=== PATIENT | male | born 1965 | race Caucasian/White ===

== ENCOUNTER 2016-11-17 09:28 | Inpatient (IN) | payer OTHER ==
[2016-11-17] MEDS ORDERED: Ketorolac Tromethamine 30 MG/ML VIAL ONE (12:14)
[2016-11-17] MEDS ORDERED: Ertapenem 1 GM in Sodium Chloride 0.9% 100 ML IVPB ONE (12:30)
[2016-11-17 12:33] LABS: #Eosinphils 0.2 thou/uL (0.0-0.7); #Lymphocytes 1.3 thou/uL (1.20-3.40); #Monocytes 0.6 thou/uL (0.11-0.59); #Neutrophils 4.8 thou/uL (1.40-6.50); %Basophils 0.4 % (0.0-1.0); %Eosinophils 2.9 % (0.0-10.0); %Lymphocytes 18.2 % (21.0-51.0); %Monocytes 8.9 % (0.0-10.0); Hematocrit 48.8 % (42.0-52.0); Mean Platelet Volume 6.7 fL (7.4-10.4); Red Blood Cell (RBC) Count 4.91 mill/uL (4.70-6.10); White Blood Cell (WBC) Count 6.9 thou/uL (4.8-10.8)
[2016-11-17 12:36] LABS: Anion Gap 15 mmol/L (10-20); BUN (Urea Nitrogen) 10 mg/dL (8.9-20.6); Calc. Creatinine Clearance 143 mL/min (70-130); Calcium 9.7 mg/dL (7.8-10.44); Carbon Dioxide 22 mmol/L (22-29); Chloride 104 mmol/L (98-107); Estimated GFR-MDRD Greater than 90
[2016-11-17] MEDS ORDERED: PHENYLEPHRINE-NS 100 MCG/ML 10 ML SYRINGE ONE (12:44)
[2016-11-17] MEDS ORDERED: Lidocaine 1% PF 5 ML VIAL ONE (12:44)
[2016-11-17] MEDS ORDERED: ePHEDrine/0.9% NaCl/PF SYRINGE 50 mg/10 ml ONE (12:44)
[2016-11-17] MEDS ORDERED: Propofol 200 MG/20 ML VIAL ONE ×2 (12:44)
[2016-11-17] MEDS ORDERED: Ondansetron HCl/PF 4 MG/2 ML Vial ONE (12:44)
[2016-11-17] MEDS ORDERED: Glycopyrrolate 0.2 MG/ML 5 ML SYRINGE ONE (12:44)
[2016-11-17] MEDS ORDERED: Bupivacaine HCl 0.5%/Epinephrine 1:200,000/PF 30 ml Vial ONE (14:18)
[2016-11-17] MEDS ORDERED: Meperidine HCl/PF 25 MG/ML VIAL SLOW IVP PRN (17:00)
[2016-11-17] MEDS ORDERED: Promethazine HCl 25 MG/ML VIAL SLOW IVP PRN (17:00)
[2016-11-17] MEDS ORDERED: Ondansetron HCl/PF 4 MG/2 ML Vial IVP PRN ×2 (17:00)
[2016-11-17] MEDS ORDERED: HYDROmorphone 2 MG/ML VIAL SLOW IVP PRN (17:00)
[2016-11-17] MEDS ORDERED: Dextrose 50% Abboject 50 ML SYRINGE SLOW IVP PRN (17:00)
[2016-11-17] MEDS ORDERED: Morphine Sulfate 2 MG/ML SYRINGE SLOW IVP PRN ×2 (17:00)
[2016-11-17] MEDS ORDERED: Promethazine HCl 25 MG/ML VIAL IM PRN (17:00)
[2016-11-17] MEDS ORDERED: Dextrose 5% in Water 1,000 ML IV PRN (17:00)
[2016-11-17] MEDS: Lactated Ringer's 1,000 ML IV SCH (19:30)
[2016-11-17 20:15] LABS: #Lymphocytes 0.5 thou/uL (1.20-3.40); #Monocytes 0.9 thou/uL (0.11-0.59); #Neutrophils 13.8 thou/uL (1.40-6.50); %Basophils 0.1 % (0.0-1.0); %Eosinophils 0.1 % (0.0-10.0); %Lymphocytes 3.1 % (21.0-51.0); %Monocytes 5.7 % (0.0-10.0); Hematocrit 35.6 % (42.0-52.0); Mean Platelet Volume 6.7 fL (7.4-10.4); Red Blood Cell (RBC) Count 3.53 mill/uL (4.70-6.10); White Blood Cell (WBC) Count 15.2 thou/uL (4.8-10.8)
[2016-11-17] MEDS: Famotidine/PF 20 mg/2ml Vial SLOW IVP SCH (21:19)
[2016-11-17] MEDS: Ketorolac Tromethamine 30 MG/ML VIAL IVP SCH (23:20)
[2016-11-17] MEDS: Acetaminophen 1,000 MG in Premix Bag 1 BAG IVPB SCH (23:20)
--- NOTE | 2016-11-18 00:32 | OP ---
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 PROCEDURES: Laparoscopy converted to a laparotomy with one-hour adhesiolysis, repair of several ser osal tears, mobilization of the distal transverse colon to the middle colic vessels and primary colo rectal anastomosis with 31 mm EEA stapler. Scarring led to bleeding from the left iliac vein, requi ring 4-0 Prolene closure accounting for 2000 mL of blood loss. BLOOD TRANSFUSED: None. PREOPERATIVE HEMOGLOBIN: 17 ANESTHESIA: General anesthesia, TAP block. PROCEDURE IN DETAIL: Patient was taken to the operating room where under general anesthesia in the dorsal lithotomy position, abdomen was prepared with chloraprep. Perineum, buttocks prepared with B etadine, draped in routine fashion. Initially, made incision in the right subcostal area laterally and pneumoperitoneum to 15 mmHg obtained with the Veress needle, replacing it with a 5 port and vide o laparoscope inserted. There were several adhesions initially taken down with the laparoscope as t hey were very loose, but there were several small bowel adhesions to anterior abdominal wall. Incis ion was made open as these adhesions were extensive. Laparoscopy was terminated and midline incisio n made through the midline, old scar and carried down through the skin and subcutaneous tissue, ente ring the abdominal cavity sharply. Adhesiolysis taken down with blunt and sharp dissection. One-ho ur adhesiolysis undertaken. Small bowel freed from the abdominal wall and from itself and the gutte rs mainly to the left. The viscera were reflected right lateral. Bookwalter retractor used for ret raction. Pelvis freed of adhesions. The colostomy taken down, which had been closed with continuou s locked suture of 2-0 silk. Elliptical incision made, taken down the colostomy from the subcutaneo us tissue and the fascia and dropped into the abdominal cavity. It was then mobilized and freed fro m small bowel adhesions and was mobilized all the way up to the middle colic vessels, which were pre served since considering the patient had a previous right colectomy. This mobilized the colon as mu ch as possible. Attention was then turned to identify location of the rectal stump. A Prolene sutu re was identified where this had been marked, but it was malpositioned to the left of the pelvis and it was dissected free posteriorly. The left ureter was identified and kept free of harm, but as th is rectal stump seemed to be adherent to the patient's left pelvis, the iliac vein was partially inc ised and bleeding ensued reflecting the blood loss. Interrupted suture of 4-0 Prolene placed to rep air this. FloSeal and Surgicel applied and local pressure. This resulted in good hemostasis. Rect al probe was then placed in the rectum identifying the rectal stump immediately posterior to the jovany dder. It was dissected free and then the 31 mm EEA stapler advanced and the post advanced out of th e rectal stump and the anvil which had been placed in the proximal colon after resecting the skin ju st adjacent to the colon and a pursestring suture of 2-0 Prolene placed and tied around the anvil. The anvil was connected to the stapling device and approximated within the torque fire range, then f ired, loosened and removed, and 2 intact donuts noted. Anastomosis checked under water without leak age with 30 mL balloon Robin catheter used to insufflate the rectum and lower colon. Once this was completed, abdominal cavity irrigated and irrigant evacuated. Hemostasis noted. Sponge and needle counts were correct. Small bowel was run from the ligament of Treitz to the ileocolonic anastomosis back and forth three times. Serosal tears closed with 3-0 silk transversely and interrupted Lember t sutures. The NG tube was palpated in good position. Patient tolerated the procedure well. Midli ne fascia approximated with continuous suture of #1 PDS. Skin and subcutaneous tissues irrigated, s kin approximated with hpuc. The colostomy site had been closed by approximating the posterior fa scia with continuous suture #1 PDS, anterior fascia with interrupted [id number] suture of #1 PD S. Skin and subcutaneous tissues irrigated, skin approximated with phuc. Patient tolerated the procedure well.
[2016-11-18] MEDS: Lactated Ringer's 1,000 ML IV SCH ×3 (03:20→18:25)
[2016-11-18] MEDS: Acetaminophen 1,000 MG in Premix Bag 1 BAG IVPB SCH ×4 (04:11→18:26)
[2016-11-18] MEDS: Ketorolac Tromethamine 30 MG/ML VIAL IVP SCH ×4 (04:11→18:26)
[2016-11-18 06:02] LABS: #Basophils 0.1 thou/uL (0.0-0.2); #Lymphocytes 0.6 thou/uL (1.20-3.40); #Monocytes 0.8 thou/uL (0.11-0.59); #Neutrophils 9.3 thou/uL (1.40-6.50); %Basophils 0.5 % (0.0-1.0); %Eosinophils 0.1 % (0.0-10.0); %Lymphocytes 5.2 % (21.0-51.0); %Monocytes 7.4 % (0.0-10.0); Hematocrit 28.3 % (42.0-52.0); Mean Platelet Volume 7.4 fL (7.4-10.4); Red Blood Cell (RBC) Count 2.81 mill/uL (4.70-6.10); White Blood Cell (WBC) Count 10.7 thou/uL (4.8-10.8)
[2016-11-18 06:20] LABS: Anion Gap 11 mmol/L (10-20); BUN (Urea Nitrogen) 11 mg/dL (8.9-20.6); Calc. Creatinine Clearance 168 mL/min (70-130); Calcium 8.4 mg/dL (7.8-10.44); Carbon Dioxide 23 mmol/L (22-29); Chloride 106 mmol/L (98-107); Estimated GFR-MDRD Greater than 90
[2016-11-18] MEDS: Famotidine/PF 20 mg/2ml Vial SLOW IVP SCH ×2 (09:31→20:59)
--- NOTE | 2016-11-18 10:31 | PRG ---
DATE OF SERVICE: 11/18/2016 SUBJECTIVE: Mr. Mcqueen is doing well today. He is 1 day postoperative colostomy reversal, extensi ve adhesiolysis. His tap block and parental analgesics are working well for his pain control. He c omplains mostly of the NG tube. PHYSICAL EXAMINATION: VITAL SIGNS: Temperature 98 degrees, 84 heart rate, 20 respiratory rate, 135/88. Postoperatively, his nasogastric tube has put out 100 mL, Robin 600 mL. LABORATORY: This morning revealed white count 10, hemoglobin 9.8. Basic metabolic profile is elie l. BUN 11, creatinine 0.71, potassium 4.3. LUNGS: Clear to auscultation. CARDIAC: Regular rate and rhythm without murmur or gallop. ABDOMEN: Soft, postoperative tenderness. Wound looks good. EXTREMITIES: Unremarkable. ASSESSMENT AND PLAN: Doing well 1 day postoperative colostomy reversal. Continue NG tube today. I ce chips as needed. Increased mobility and ambulation. Leave Robin in place now. Check CBC in the morning.
[2016-11-18] MEDS: Enoxaparin Sodium 40 MG/0.4 ML SYRINGE SC SCH (10:48)
[2016-11-18 13:42] VITALS: BMI 26.9
[2016-11-18] MEDS ORDERED: Naloxone HCl 0.4 mg/ml Vial IV PRN (14:27)
[2016-11-18] MEDS ORDERED: Chloraseptic Spray 180 ml Bottle PO PRN (14:27)
[2016-11-18] MEDS: Fentanyl 5000 MCG/250 ML CADD IV PRN (15:08)
[2016-11-19] MEDS: Ketorolac Tromethamine 30 MG/ML VIAL IVP SCH ×5 (00:23→23:42)
[2016-11-19] MEDS: Acetaminophen 1,000 MG in Premix Bag 1 BAG IVPB SCH ×4 (00:23→17:46)
[2016-11-19] MEDS: Lactated Ringer's 1,000 ML IV SCH ×4 (00:24→20:39)
[2016-11-19 06:56] LABS: #Eosinphils 0.1 thou/uL (0.0-0.7); #Lymphocytes 0.6 thou/uL (1.20-3.40); #Monocytes 0.5 thou/uL (0.11-0.59); %Basophils 0.3 % (0.0-1.0); %Eosinophils 1.2 % (0.0-10.0); %Lymphocytes 10.4 % (21.0-51.0); %Monocytes 7.3 % (0.0-10.0); Hematocrit 26.3 % (42.0-52.0); Mean Platelet Volume 7.5 fL (7.4-10.4); Red Blood Cell (RBC) Count 2.59 mill/uL (4.70-6.10); White Blood Cell (WBC) Count 6.1 thou/uL (4.8-10.8)
[2016-11-19 07:00] LABS: Anion Gap 11 mmol/L (10-20); BUN (Urea Nitrogen) 10 mg/dL (8.9-20.6); Calc. Creatinine Clearance 175 mL/min (70-130); Calcium 8.3 mg/dL (7.8-10.44); Carbon Dioxide 25 mmol/L (22-29); Chloride 107 mmol/L (98-107); Estimated GFR-MDRD Greater than 90
[2016-11-19] MEDS: Famotidine/PF 20 mg/2ml Vial SLOW IVP SCH ×2 (10:14→19:47)
[2016-11-19] MEDS: Enoxaparin Sodium 40 MG/0.4 ML SYRINGE SC SCH (10:20)
--- NOTE | 2016-11-19 23:42 | PRG ---
DATE OF CONSULTATION: 11/19/2016. HISTORY OF PRESENT ILLNESS: Jean Mcqueen is 2 days postoperative extensive adhesiolysis, closure of serosal tears, colostomy reversal 31 mm EA colorectal anastomosis. The patient is doing well ove rall. He is irritated mostly by the NG tube. He has good pain control with his tap blocks, 98.1 de grees, 90, 150/85. His Robin catheter is in place, 1350 in the last 24 hours. Gastric drainage 450 last 24 hours. He reports small amount of flatus possibly. PHYSICAL EXAMINATION: LUNGS: Clear to auscultation. CARDIAC: Regular rate and rhythm without murmur or gallop. ABDOMEN: Soft, quiet. Surgical wound looks good. Dressing removed and replaced because of some mi ld oozing, otherwise, wound could be left open. EXTREMITIES: Unremarkable. LABORATORY: White count 6, hemoglobin 9.1. Basic metabolic profile is unremarkable. ASSESSMENT AND PLAN: 1. Two days status post extensive adhesiolysis, colostomy reversal. He did experience some blood l oss during the operation related to the iliac vein controlled with Prolene suture and FloSeal. His hemoglobin is stable. We will discontinue daily labs. He will need to continue NG tube for now unt il more definitive bowel function due to the extensive adhesiolysis. Dr. Ervin is covering the week end and I will leave it to his discretion as to when this tube should be removed. 2. Good mobility level and good pain control.
[2016-11-20] MEDS: Ketorolac Tromethamine 30 MG/ML VIAL IVP SCH ×3 (06:30→17:49)
[2016-11-20] MEDS: Famotidine/PF 20 mg/2ml Vial SLOW IVP SCH ×2 (08:42→21:48)
[2016-11-20] MEDS: Lactated Ringer's 1,000 ML IV SCH ×2 (08:43→15:45)
[2016-11-20] MEDS: Enoxaparin Sodium 40 MG/0.4 ML SYRINGE SC SCH (10:12)
[2016-11-21] MEDS: Lactated Ringer's 1,000 ML IV SCH ×3 (02:51→23:54)
[2016-11-21] MEDS: Fentanyl 5000 MCG/250 ML CADD IV PRN (05:49)
[2016-11-21] MEDS: Famotidine/PF 20 mg/2ml Vial SLOW IVP SCH ×2 (09:37→22:03)
[2016-11-21] MEDS: Enoxaparin Sodium 40 MG/0.4 ML SYRINGE SC SCH (09:38)
[2016-11-21] MEDS: Acetaminophen 500 MG TAB PO SCH ×2 (14:48→22:03)
[2016-11-21] MEDS: traMADol HCl 50 MG TAB PO SCH ×2 (14:49→22:03)
[2016-11-22] MEDS: Acetaminophen 500 MG TAB PO SCH ×4 (02:13→20:05)
[2016-11-22] MEDS: traMADol HCl 50 MG TAB PO SCH ×4 (02:13→20:05)
[2016-11-22] MEDS: Famotidine/PF 20 mg/2ml Vial SLOW IVP SCH (08:00)
[2016-11-22] MEDS: Enoxaparin Sodium 40 MG/0.4 ML SYRINGE SC SCH (08:31)
[2016-11-22] MEDS: Lactated Ringer's 1,000 ML IV SCH (13:59)
--- NOTE | 2016-11-22 19:21 | PRG ---
DATE OF SERVICE: 11/22/2016 SUBJECTIVE: Mr. Mcqueen is doing well today. He is on clear liquids. He had small amount of diste ntion when he overdid his clear liquids to start with yesterday, but has resolved. He reports flatu s, but no stool. He does not have any nausea or abdominal distention. He reports his abdomen is no rmal size. OBJECTIVE: VITAL SIGNS: 97.6 degrees, 118, 168/96. LUNGS: Clear to auscultation. CARDIAC: Regular rate and rhythm without murmur or gallop. ABDOMEN: Soft, nontender. LABORATORY DATA: Hemoglobin 9.1, white count 6.1. Basic metabolic profile was normal. ASSESSMENT AND PLAN: The patient is doing well postoperatively. Advance to full liquids. We will saline lock his IV. Hopefully, he will be able to be discharged home in the next 24-48 hours. His wound looks good.
[2016-11-23] MEDS: Acetaminophen 500 MG TAB PO SCH ×4 (01:00→18:29)
[2016-11-23] MEDS: traMADol HCl 50 MG TAB PO SCH ×4 (01:00→18:29)
[2016-11-23] MEDS: Enoxaparin Sodium 40 MG/0.4 ML SYRINGE SC SCH (09:00)
--- NOTE | 2016-11-23 16:50 | EKG ---
Test Reason : PREOP Blood Pressure : / mmHG Vent. Rate : 095 BPM Atrial Rate : 095 BPM P-R Int : 172 ms QRS Dur : 074 ms QT Int : 356 ms P-R-T Axes : 064 -18 031 degrees QTc Int : 447 ms Normal sinus rhythm Normal ECG When compared with ECG of 18-APR-2016 17:56, T wave amplitude has increased in Anterior leads Confirmed by Maryam MAURICIO ([id number]) on 11/23/2016 4:50:09 PM Referred By: ALANA Confirmed By:Maryam MAURICIO
--- NOTE | 2016-11-23 19:48 | PRG ---
DATE OF SERVICE: 11/23/2016 SUBJECTIVE: Mr. Mcqueen is doing well today. He is not having nausea, vomiting. He is tolerating his liquids. OBJECTIVE: VITAL SIGNS: 98.2 degrees, heart rate 86, blood pressure 157/79. LUNGS: Clear to auscultation. CARDIAC: Regular rate and rhythm without murmur or gallop. ABDOMEN: Soft. Positive bowel sounds. He has had bowel movements yesterday. ASSESSMENT AND PLAN: The patient is doing well. We will resume his home medications for his high b lood pressure. We will begin a regular diet. Anticipate possible discharge home in the next day or two.
[2016-11-23] MEDS: Lisinopril 20 MG TAB PO SCH (21:43)
[2016-11-24] MEDS: Acetaminophen 500 MG TAB PO SCH ×4 (02:43→19:58)
[2016-11-24] MEDS: traMADol HCl 50 MG TAB PO SCH ×4 (02:43→20:01)
--- NOTE | 2016-11-24 08:00 | PRG ---
DATE OF SERVICE: 11/24/2016 Jean Mcqueen is having abdominal distention today and some reflux symptoms. He is passing some g as. VITAL SIGNS: Temperature 98.1 degrees, 98 heart rate, 117/79. LABORATORY DATA: None today. LUNGS: Clear to auscultation. CARDIAC: Regular rate and rhythm without murmur or gallop. ABDOMEN: Soft, distended, tympanitic. ASSESSMENT AND PLAN: The patient an extensive adhesiolysis and we have been advancing his diet as jeancarlos renee seems to be doing well, but with abdominal distention and nausea and cramps, would back off to bijan ar liquids only and he has been encouraged to take minimal input until his abdominal distention reso lves. We will check laboratories in the morning and advance diet tomorrow based on clinical course today.
[2016-11-24] MEDS: Enoxaparin Sodium 40 MG/0.4 ML SYRINGE SC SCH (09:34)
[2016-11-24] MEDS: Lisinopril 20 MG TAB PO SCH ×2 (09:35→21:32)
[2016-11-24] MEDS: Lactated Ringer's 1,000 ML IV SCH (09:35)
[2016-11-24] MEDS: Polyethylene Glycol 3350 17 GM Packet PO SCH (09:35)
[2016-11-24] MEDS ORDERED: Metoclopramide HCl 10 MG/2 ML VIAL IVP PRN (10:43)
[2016-11-24] MEDS: Pantoprazole 40 MG VIAL IVP SCH ×2 (11:18→21:26)
[2016-11-24 17:09] LABS: Oxyhemoglobin 90.9 % (94.0-97.0); Sodium 137 mmol/L (135-148)
[2016-11-24 17:46] LABS: Mode OR ABG; Vent YES
[2016-11-25] MEDS: traMADol HCl 50 MG TAB PO SCH ×4 (02:15→18:30)
[2016-11-25] MEDS: Acetaminophen 500 MG TAB PO SCH ×4 (02:15→18:30)
[2016-11-25] MEDS: Lactated Ringer's 1,000 ML IV SCH (04:59)
[2016-11-25 06:13] LABS: #Eosinphils 0.3 thou/uL (0.0-0.7); #Lymphocytes 0.9 thou/uL (1.20-3.40); #Monocytes 0.7 thou/uL (0.11-0.59); #Neutrophils 3.6 thou/uL (1.40-6.50); %Basophils 0.1 % (0.0-1.0); %Eosinophils 5.7 % (0.0-10.0); %Lymphocytes 15.6 % (21.0-51.0); %Monocytes 13.2 % (0.0-10.0); Hematocrit 30.8 % (42.0-52.0); Mean Platelet Volume 6.7 fL (7.4-10.4); Red Blood Cell (RBC) Count 3.07 mill/uL (4.70-6.10); White Blood Cell (WBC) Count 5.5 thou/uL (4.8-10.8)
[2016-11-25 06:38] LABS: Anion Gap 16 mmol/L (10-20); BUN (Urea Nitrogen) 9 mg/dL (8.9-20.6); Calc. Creatinine Clearance 186 mL/min (70-130); Calcium 8.9 mg/dL (7.8-10.44); Carbon Dioxide 22 mmol/L (22-29); Chloride 105 mmol/L (98-107); Estimated GFR-MDRD Greater than 90
[2016-11-25] MEDS: Polyethylene Glycol 3350 17 GM Packet PO SCH (09:48)
[2016-11-25] MEDS: Pantoprazole 40 MG VIAL IVP SCH ×2 (09:48→20:29)
[2016-11-25] MEDS: Lisinopril 20 MG TAB PO SCH ×2 (09:48→20:29)
[2016-11-25] MEDS: Enoxaparin Sodium 40 MG/0.4 ML SYRINGE SC SCH (18:27)
--- NOTE | 2016-11-25 18:34 | PRG ---
DATE OF SERVICE: 11/25/2016 SUBJECTIVE: Jean Mcqueen is doing well today. He is tolerating his diet. He has had bowel movem ent. PHYSICAL EXAMINATION: VITAL SIGNS: 97.9 degrees, heart rate 80, 126/85. LUNGS: Clear to auscultation. CARDIAC: Regular rate and rhythm without murmur or gallop. ABDOMEN: Soft, bowel sounds present, nondistended. The patient is doing well, status post colostomy reversal. His wounds look good. PLAN: Plan is to discharge home tomorrow if he continues to do well. Tolerates his diet tonight.
[2016-11-26] MEDS: Lactated Ringer's 1,000 ML IV SCH (00:32)
[2016-11-26] MEDS: traMADol HCl 50 MG TAB PO SCH (02:31)
[2016-11-26] MEDS: Acetaminophen 500 MG TAB PO SCH (02:31)
[2016-11-26 12:27] VITALS: BP 135/85; TEMP 97.7
--- NOTE | 2016-11-26 13:08 | DIS ---
DATE OF SERVICE: 11/26/2016 Jean Mcqueen is doing well today. He has had multiple bowel movements. He is tolerating his diet . He is not having any abdominal pain. Motrin and Tylenol are sufficing for his pain control. PHYSICAL EXAMINATION: LUNGS: Clear to auscultation. ABDOMEN: Soft, nontender. CARDIAC: Regular rate and rhythm without murmur or gallop. The wound is healed. ASSESSMENT AND PLAN: The patient is having good GI function. He will be discharged home today with follow up in my office in 2-3 weeks. [place] will be removed today. Mastisol and Steri-Strips leticia lied. No lifting over 25-30 pounds for 6 weeks.
--- NOTE | 2016-11-26 23:59 | DIS ---
DATE OF ADMISSION: 11/17/2016 DATE OF DISCHARGE: 11/26/2016 DISCHARGE DIAGNOSIS: Undesired colostomy. PROCEDURES: Laparoscopic converted to open extensive adhesiolysis and colostomy reversal, patient i s status post left colon resection for obstructing diverticulitis. HISTORY: A 51-year-old male presenting for colostomy reversal, undergoing bowel prep, colonoscopy t he day prior and now presents for colostomy reversal. He had extensive adhesions requiring more mal n an hour, requiring conversion from laparoscopic to open. Postoperatively, he did well, convalesce d, tolerated his diet, and discharged to home. Carlos Alberto were removed prior to discharge. Follow up in my office in 2-3 weeks. No lifting over 25 pounds for 6 weeks. Tylenol, ibuprofen are sufficing for pain control.
== END 2016-11-26 14:24 | disposition home or self-care (01) | DRG 331 ==
LOC: SURG A 11:16 → SURG B 18:07
PROVIDERS: ADMIT Specialist; ATTEND Specialist
PROC: 0DN80ZZ Release Small Intestine, Open Approach (ICD-10-PCS; principal; 2016-11-17)
PROC: 0DBL0ZZ Excision of Transverse Colon, Open Approach (ICD-10-PCS; 2016-11-17)
PROC: 0DN84ZZ Release Small Intestine, Percutaneous Endoscopic Approach (ICD-10-PCS; 2016-11-17)
PROC: 3E0T3CZ (ICD-10-PCS; 2016-11-17)
PROC: 3E0T33Z Introduction of Anti-inflammatory into Peripheral Nerves and Plexi, Percutaneous Approach (ICD-10-PCS; 2016-11-17)
DX: Z43.3 Encounter for attention to colostomy (principal); I10 Essential (primary) hypertension; Z90.49 Acquired absence of other specified parts of digestive tract; F17.210 Nicotine dependence, cigarettes, uncomplicated
CPT/HCPCS: 36415; 36416; 80048; 82805; 85025; 86850; 86900; 86901; 88305; 93005; 93010; A4216; C9113; J0131; J0360; J0670; J1335; J1650; J1885; J2001; J2270; J2405; J2704; J2765; J3010; J7050; S0028